=== PATIENT | female | born 1935 | race Caucasian/White ===

== ENCOUNTER 2017-05-21 21:27 | Observation (INO) | payer OTHER, BC ==
[2017-05-21] MEDS ORDERED: HYDROCODONE/APAP 5/325 TAB PO ONE (21:52)
--- NOTE | 2017-05-21 23:49 | EDPHY ---
H & P Stated Complaint: r knee pain and swelling Time Seen by Provider: 05/21/17 23:57 HPI/ROS: HPI: This is an 81-year-old female who presents with Chief Complaint: Right knee pain Location: Right anterior and posterior knee Quality: Aching pain Duration: 1 week Signs and Symptoms: no radiation, no numbness, no weakness, no tingling, no incontinence, + decreased flexion, no injury, + swelling, no erythema Timing: Gradual onset Severity: Moderate Context: Patient has a history of right total knee replacement greater than 10 years ago by an orthopedic surgeon in [place]. Patient reports that she has been in physical therapy the last 2 weeks. She has noted increased pain in her right knee. Has not fallen on it. Denies feeling any popping or locking symptoms. Modifying Factors: Tylenol without relief Comment: ROS: Constitutional: No fever, no chills, no weight loss Eyes: No blurred vision Respiratory: No shortness of breath, no cough Cardiovascular: No chest pain Gastrointestinal: No nausea, no vomiting no diarrhea Genitourinary: No dysuria Extremities: No myalgias Neurologic: No weakness, no numbness Skin: No rashes Hematologic: No bruising, no bleeding Source: Patient, Family Exam Limitations: No limitations - Personal History Current Tetanus/Diphtheria Vaccine: Unsure Current Tetanus Diphtheria and Acellular Pertussis (TDAP): Unsure Tetanus Vaccine Date: Unknown - Medical/Surgical History Hx Asthma: No Hx Chronic Respiratory Disease: No Hx Diabetes: No Hx Cardiac Disease: Yes Hx Renal Disease: No Hx Cirrhosis: No Hx Alcoholism: No Hx HIV/AIDS: No Hx Splenectomy or Spleen Trauma: No Other PMH: hypothyroid, bilat hip, knee surgery. right shoulder. heart stents, htn, seizure. - Social History Smoking Status: Never smoked Additional Social History: . - Physical Exam Exam: CONSTITUTIONAL: Pleasant elderly obese white female, awake and alert, no obvious distress HEENT: Atraumatic and normocephalic, PERRL, EOMI. Tympanic membranes clear. . Oropharynx clear, no exudate and moist pink mucosa. Airway patent. No lymphadenopathy. No meningismus. Cardiovascular: Normal S1/S2, regular rate, regular rhythm, without murmur rub or gallop. PULMONARY/CHEST: Symmetrical and nontender. Clear to auscultation bilaterally Good air movement. No accessory muscle usage. ABDOMEN: Soft, nondistended, nontender, no rebound, no guarding, no peritoneal signs, no masses or organomegaly. No CVAT. EXTREMITIES: 2/2 pulses, right knee moderate effusion; medial and lateral joint line tenderness; some laxity with valgus and varus stress; full extension to 180; flexion only to 40 limited secondary to pain. Fullness in the popliteal fossa. No calf tenderness. Well-healed remote anterior vertical incision. no deformities, no clubbing, no cyanosis or pedal edema. NEUROLOGICAL: no focal neuro deficits. GCS 15. SKIN: Warm and dry, no erythema. no rash. Good capillary refill. Constitutional: Initial Vital Signs Temperature (C) 36.5 C 05/21/17 21:42 Heart Rate 105 H 05/21/17 21:42 Respiratory Rate 18 05/21/17 21:42 Blood Pressure 162/96 H 05/21/17 21:42 O2 Sat (%) 93 05/21/17 21:42 O2 Delivery Mode Room Air Allergies/Adverse Reactions: sulfamethoxazole [From Bactrim] Allergy (Intermediate, Verified 05/23/12 21:02) UPSET STOMACH trimethoprim [From Bactrim] Allergy (Intermediate, Verified 05/23/12 21:02) UPSET STOMACH celecoxib [From Celebrex] Allergy (Verified 10/28/13 22:22) INCREASED BP Home Medications: Medication Instructions Recorded Acetaminophen [Tylenol 325mg (*)] 650 mg PO BID PRN 12/03/11 Atorvastatin Calcium [Lipitor 20 20 mg PO DAILY 03/20/12 mg (*)] Levothyroxine [Synthroid 100 mcg 125 mcg PO DAILY 03/20/12 (*)] Metoprolol Succinate Xr [Toprol Xl 150 mg PO DAILY 03/20/12 100 mg (*)] levETIRAcetam [Keppra 500 mg (RX)] 500 mg PO BID #60 tab 03/21/12 Aspirin EC [Aspirin EC 325 mg 325 mg PO DAILY 01/03/13 (OTC)] Losartan Potassium 09/08/14 Hydrocodone/APAP 5/325 [Secor 1 - 2 tab PO Q4H PRN #10 tab 05/21/17 5/325 (*)] Norvasc 05/21/17 Medical Decision Making - Diagnostics Imaging Results: Imaging Impressions Extremity Venous Study 05/21/17 21:52 Impression: 1. No deep venous thrombosis in the right lower extremity. 2. 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 Findings discussed with Ele Jacob PAC at 23:37 hour, 05/21/2017. Knee X-Ray 05/21/17 21:52 Impression: 1. Moderate to large effusion suprapatellar bursa region. 2. No evidence of fracture about the right knee replacement. ED Course/Re-evaluation: Right lower extremity ultrasound, right knee x-ray, oral medication ordered Ultrasound shows no evidence of DVT, + Coleman cyst. Right knee x-ray my read via PACS shows effusion; hardware intact. Will defer to Orthopedics for aspiration of knee infusion in a patient with knee replacement. Moderate pain in relief with Secor Atul wrap; uses walker at home to aid in ambulation No signs of neurovascular compromise/tenting of skin/compartment syndrome/ extremities and joints examined above and below area of concern and are neurovascularly intact. Differential Diagnosis: Differential diagnosis includes but is not limited to Coleman cyst, hardware malfunction, extensor mechanism failure, septic arthritis, DVT, cellulitis, effusion, osteoarthritis. 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 Prescriptions: Hydrocodone/APAP 5/325 [Secor 5/325 (*)] 1 - 2 tab PO Q4H PRN #10 tab PRN Reason: Pain, Moderate
[2017-05-22 01:29] LABS: % IMMATURE GRANULYOCYTES 0.7 % (0.0-1.1); ADD DIFF? NO; ADD MORPH? NO; ADD SCAN? NO; ATYPICAL LYMPHOCYTE FLAG 10 (0-99); FRAGMENT RBC FLAG 0 (0-99); HEMATOCRIT 40.9 % (38.0-47.0); HEMOGLOBIN 13.6 g/dL (12.6-16.3); LEFT SHIFT FLG 0 (0-99); LIPEMIA HEMOLYSIS FLAG 80 (0-99); MEAN CELL HEMOGLOBIN CONCENTR. 33.3 g/dL (32.4-36.7); MEAN CELL VOLUME 90.3 fL (81.5-99.8); MEAN PLATELET VOLUME 8.6 fL (8.7-11.7); PLATELET CLUMPS FLAG 10 (0-99); PLATELET COUNT 292 10^3/uL (150-400); RED BLOOD CELL COUNT 4.53 10^6/uL (4.18-5.33); RED CELL DISTRIBUTION WIDTH 13.2 % (11.5-15.2)
[2017-05-22 01:48] LABS: SEDIMENTATION RATE 8 MM/HR (0-30)
[2017-05-22 02:03] LABS: CHLORIDE 92 mEq/L (97-110); POTASSIUM 4.1 mEq/L (3.5-5.2); SODIUM 126 mEq/L (134-144)
[2017-05-22 02:04] LABS: C-REACTIVE PROTEIN < 5.0 mg/L (<10.0); CALCIUM 9.2 mg/dL (8.5-10.4); CREATININE 0.7 mg/dL (0.6-1.0); GLOMERULAR FILTRATION RATE > 60; GLUCOSE 133 mg/dL (70-100)
[2017-05-22 02:27] LABS: ANION GAP 15 mEq/L (8-16); CARBON DIOXIDE 19 mEq/l (22-31)
[2017-05-22] MEDS ORDERED: ACETAMINOPHEN 325 MG TAB PO PRN ×2 (02:37→10:46)
[2017-05-22] MEDS ORDERED: oxyCODONE IR 5 MG TAB PO PRN (02:37)
[2017-05-22] MEDS ORDERED: ONDANSETRON 4 MG/2 ML VIAL IVP PRN (02:37)
[2017-05-22] MEDS ORDERED: ONDANSETRON DISINTEGRATING 4 MG TAB PO PRN (02:37)
[2017-05-22] MEDS ORDERED: KETOROLAC 15 MG/1 ML SDV IVP ONE ×2 (02:40→05:30)
--- NOTE | 2017-05-22 03:16 | PDGENHP ---
History and Physical - Chief Complaint Knee pain - History of Present Illness 81 yo F w/ hx of CAD, HTN, and OA s/p multiple joint replacements presents with R knee pain. Patient has hx of coleman cyst of R knee. She was undertaking usual activities today when she noted fairly acute onset of R knee pain and posterior knee(popliteal) swelling. She denies fevers, redness, or severe pain with range of motion. She had a similar episode to this a few months ago that resolved with supportive care ([facility].I.C.E) only. She was set to go home from the ED but could not ambulate with her walker due to pain so was admitted for observation. History Information - Allergies/Home Medication List Allergies/Adverse Reactions: sulfamethoxazole [From Bactrim] Allergy (Intermediate, Verified 05/23/12 21:02) UPSET STOMACH trimethoprim [From Bactrim] Allergy (Intermediate, Verified 05/23/12 21:02) UPSET STOMACH celecoxib [From Celebrex] Allergy (Verified 10/28/13 22:22) INCREASED BP Home Medications: Acetaminophen [Tylenol 325mg (*)] 650 mg PO BID PRN 12/03/11 [Last Taken 08:00] Atorvastatin Calcium [Lipitor 20 mg (*)] 20 mg PO DAILY 03/20/12 [Last Taken 08:00] Levothyroxine [Synthroid 100 mcg (*)] 125 mcg PO DAILY 03/20/12 [Last Taken 08:00] Metoprolol Succinate Xr [Toprol Xl 100 mg (*)] 150 mg PO DAILY 03/20/12 [Last Taken 01/03/13 08:00] Aspirin EC [Aspirin EC 325 mg (OTC)] 325 mg PO DAILY 01/03/13 [Last Taken 08:00] Losartan Potassium 09/08/14 [Last Taken Unknown] Norvasc 05/21/17 [Last Taken Unknown] I have personally reviewed and updated: family history, medical history - Past Medical History coronary artery disease - Surgical History Additional surgical history: B/l TKAs - Family History Positive for: CAD - Social History Smoking Status: Never smoked Alcohol Use: None Drug Use: None Review of Systems ROS: 10pt was reviewed & negative except for what was stated in HPI & below Physical Exam Temp Pulse Resp BP Pulse Ox 36.5 C 79 18 163/101 H 91 L 05/22/17 02:33 05/22/17 02:33 05/22/17 02:33 05/22/17 02:33 05/22/17 02:33 Constitutional: no apparent distress, appears nourished Eyes: PERRL, EOMI Ears, Nose, Mouth, Throat: moist mucous membranes, no oral mucosal ulcers Cardiovascular: regular rate and rhythym, no murmur, rub, or gallop Respiratory: no respiratory distress, clear to auscultation Gastrointestinal: normoactive bowel sounds, soft, non-tender abdomen Skin: warm, no rashes or abrasions Musculoskeletal: joint effusion (Mild R knee effusion, no warmth or redness) Neurologic: AAOx3, CN II-XII Intact Psychiatric: interacting appropriately, not anxious Lab Data & Imaging Review 05/22/17 01:20 05/22/17 01:20 WBC 13.95 10^3/uL (3.80-9.50) H 05/22/17 01:20 RBC 4.53 10^6/uL (4.18-5.33) 05/22/17 01:20 Hgb 13.6 g/dL (12.6-16.3) 05/22/17 01:20 Hct 40.9 % (38.0-47.0) 05/22/17 01:20 MCV 90.3 fL (81.5-99.8) 05/22/17 01:20 MCH 30.0 pg (27.9-34.1) 05/22/17 01:20 MCHC 33.3 g/dL (32.4-36.7) 05/22/17 01:20 RDW 13.2 % (11.5-15.2) 05/22/17 01:20 Plt Count 292 10^3/uL (150-400) 05/22/17 01:20 MPV 8.6 fL (8.7-11.7) L 05/22/17 01:20 Neut % (Auto) 74.3 % (39.3-74.2) H 05/22/17 01:20 Lymph % (Auto) 18.3 % (15.0-45.0) 05/22/17 01:20 Williamson % (Auto) 5.2 % (4.5-13.0) 05/22/17 01:20 Eos % (Auto) 0.9 % (0.6-7.6) 05/22/17 01:20 Baso % (Auto) 0.6 % (0.3-1.7) 05/22/17 01:20 Nucleat RBC Rel Count 0.0 % (0.0-0.2) 05/22/17 01:20 Absolute Neuts (auto) 10.36 10^3/uL (1.70-6.50) H 05/22/17 01:20 Absolute Lymphs (auto) 2.55 10^3/uL (1.00-3.00) 05/22/17 01:20 Absolute Monos (auto) 0.73 10^3/uL (0.30-0.80) 05/22/17 01:20 Absolute Eos (auto) 0.12 10^3/uL (0.03-0.40) 05/22/17 01:20 Absolute Basos (auto) 0.09 10^3/uL (0.02-0.10) 05/22/17 01:20 Absolute Nucleated RBC 0.00 10^3/uL (0-0.01) 05/22/17 01:20 Immature Gran % 0.7 % (0.0-1.1) 05/22/17 01:20 Immature Gran # 0.10 10^3/uL (0.00-0.10) 05/22/17 01:20 ESR 8 MM/HR (0-30) 05/22/17 01:20 Sodium 126 mEq/L (134-144) L 05/22/17 01:20 Potassium 4.1 mEq/L (3.5-5.2) 05/22/17 01:20 Chloride 92 mEq/L (97-110) L 05/22/17 01:20 Carbon Dioxide 19 mEq/l (22-31) L 05/22/17 01:20 Anion Gap 15 mEq/L (8-16) 05/22/17 01:20 BUN 22 mg/dL (7-23) 05/22/17 01:20 Creatinine 0.7 mg/dL (0.6-1.0) 05/22/17 01:20 Estimated GFR > 60 05/22/17 01:20 Glucose 133 mg/dL (70-100) H 05/22/17 01:20 Calcium 9.2 mg/dL (8.5-10.4) 05/22/17 01:20 C-Reactive Protein < 5.0 mg/L (<10.0) 05/22/17 01:20 Imaging Review: Knee XR with effusion, no osseous abnormality. Ultrasound confirms Coleman's Cyst w/ no DVT. Assessment & Plan Assessment: 81 yo F w/ CAD, HTN, and OA presents with R knee pain most likely 2/2 known Coleman's Cyst. Plan: 1. R knee pain - Suspect related to Coleman's cyst with possible rupture causing acute symptoms. No redness, warmth, fever, or significant pain with ROM to suggest septic arthritis. XR with effusion only, U/S confirms Coleman's cyst and rules out DVT. She had similar episode to this in the past that resolved with supportive care only. - Will give ketorolac 15 mg IV x1 - Supportive care - Monitor for emergence of infectious symptoms, none currently 2. Leukocytosis - Mild, suspect related to inflammation from above. No other SIRS criteria. Continue to monitor. 3. CAD - Chest pain free, on ASA, BB, statin as outpatient. 4. HTN - Well controlled on outpatient regimen Diet - Regular Code - Full Ppx - LMWH Dispo - Admit to observation, suspect will need <2 MN needed for symptom control
[2017-05-22 04:54] LABS: % IMMATURE GRANULYOCYTES 0.6 % (0.0-1.1); ABSOLUTE IMMATURE GRANULOCYTES 0.08 10^3/uL (0.00-0.10); ADD DIFF? NO; ADD MORPH? NO; ADD SCAN? NO; ATYPICAL LYMPHOCYTE FLAG 0 (0-99); FRAGMENT RBC FLAG 0 (0-99); HEMATOCRIT 36.1 % (38.0-47.0); HEMOGLOBIN 12.5 g/dL (12.6-16.3); LEFT SHIFT FLG 0 (0-99); LIPEMIA HEMOLYSIS FLAG 90 (0-99); MEAN CELL HEMOGLOBIN CONCENTR. 34.6 g/dL (32.4-36.7); MEAN CELL VOLUME 86.8 fL (81.5-99.8); MEAN PLATELET VOLUME 9.1 fL (8.7-11.7); PLATELET CLUMPS FLAG 0 (0-99); PLATELET COUNT 253 10^3/uL (150-400); RED BLOOD CELL COUNT 4.16 10^6/uL (4.18-5.33); RED CELL DISTRIBUTION WIDTH 13.2 % (11.5-15.2)
[2017-05-22 05:17] LABS: ANION GAP 11 mEq/L (8-16); CALCIUM 9.1 mg/dL (8.5-10.4); CARBON DIOXIDE 18 mEq/l (22-31); CHLORIDE 96 mEq/L (97-110); CREATININE 0.6 mg/dL (0.6-1.0); GLOMERULAR FILTRATION RATE > 60; GLUCOSE 97 mg/dL (70-100); POTASSIUM 4.3 mEq/L (3.5-5.2); SODIUM 125 mEq/L (134-144)
[2017-05-22 07:59] VITALS: RESP 16; TEMP 97.5
[2017-05-22] MEDS ORDERED: ENOXAPARIN 30 MG/0.3 ML SYR SC SCH (09:00)
[2017-05-22] MEDS: DICLOFENAC SODIUM 1% 100 GM GEL TP SCH ×3 (10:01→16:10)
--- NOTE | 2017-05-22 10:52 | PDDCSUM ---
Discharge Summary Discharge Summary: DISCHARGE SUMMARY FOLLOW-UP ITEMS: Schedule appointment with Dr. Wilmar Soto. DATE OF ADMISSION: 05/22/2017 DATE OF DISCHARGE: 05/22/17 DISCHARGE DIAGNOSES: 1. Acute knee pain 2. Osteoarthritis 3. Coleman cyst 4. Chronic hypertension 5. Chronic hyponatremia CONSULTATIONS: None PROCEDURES / IMAGING: Ultrasound of the leg demonstrating no evidence of deep venous thrombosis, coleman cyst, x-ray demonstrating suprapatellar effusion with no fracture CHIEF COMPLAINT: Acute leg pain and inability to ambulate SUBJECTIVE: Patient is working well with physical therapy, ambulating with less pain PHYSICAL EXAM ON DISCHARGE: Systolic blood pressure is 140-160, heart rate 80, afebrile overnight, satting well on room air, alert awake oriented x3, there is minimal tenderness posterior to the knee on the right side, with small palpable Coleman cyst, joint effusion without any anterior tenderness, full range of motion right ankle without any effusion or pain, full range of motion right hip with flexion, limited flexion in right knee secondary to chronic osteoarthritic changes LABS ON DISCHARGE: White blood cell count 13,700, hemoglobin 12.5, serum sodium 125, creatinine 0.6 HOSPITAL COURSE BY PROBLEM: 1. Acute knee pain. Most likely secondary to ruptured Coleman cyst resulting in right knee effusion and underlying osteoarthritis. She requires observation overnight she was unsafe to ambulate out of the emergency department on her presentation. Her leukocytosis was most likely secondary to pain response. Physical exam is not demonstrative of septic joint in patient's pain has responded to supportive care. The patient engage successfully with physical and occupational therapy, and was safe for discharge home with home PT and RN services. Dr. Soto was notified of patient's discomfort and patient was advised to follow up with him closely as an outpatient. 2. Chronic hypertension. Patient was continued on all of her home antihypertensives, the diclofenac topical should not significantly elevated her blood pressure but she should have outpatient blood pressure monitoring through PCP office. DISCHARGE MEDICATIONS: Please see official discharge medication reconciliation sheet in chart , diclofenac topical as needed, continue all other home medications, oxycodone immediate release as needed. DISCHARGE INSTRUCTIONS: Please have outpatient labs recheck through primary care office.
[2017-05-22] MEDS ORDERED: LOSARTAN POTASSIUM 50 MG TAB PO SCH (11:00)
[2017-05-22] MEDS ORDERED: METOPROLOL SUCCINATE XR 100 MG TAB PO SCH (11:00)
[2017-05-22] MEDS ORDERED: ASPIRIN EC 325 MG TAB PO SCH (11:00)
[2017-05-22] MEDS ORDERED: NON-FORMULARY NEW DRUG (Losartan Potassium [Cozaar] 100 MG) PO SCH (11:00)
[2017-05-22] MEDS ORDERED: ATORVASTATIN CALCIUM 20 MG TAB PO SCH (11:00)
[2017-05-22] MEDS ORDERED: LEVOTHYROXINE 125 MCG TAB PO SCH (11:00)
[2017-05-22] MEDS ORDERED: levETIRAcetam 500 MG TAB PO SCH (11:00)
[2017-05-22 11:42] VITALS: BP 110/75; PULSE 93; O2SAT 92
[2017-05-22] MEDS ORDERED: amLODIPine BESYLATE 5 MG TAB PO SCH (21:00)
[2017-05-23] MEDS ORDERED: ENOXAPARIN 40 MG/0.4 ML SYR SC SCH (09:00)
--- NOTE | 2017-05-23 09:18 | ASMTCMCOM ---
CM Note CM Note Notes: PT/OT clear pt for home. Pt medically stable for d/c, no CM d/c needs identified. Date Signed: 05/23/2017 09:18 AM Electronically Signed By:Lizzy Caraballo
--- NOTE | 2017-05-23 09:18 | ASDISCHSUM ---
Discharge Information Plan Status:Home with No Needs Medically Cleared to Leave: Discharge Date: D/C Disposition:Home, Routine, Self-Care ADT D/C Disposition: Projected Discharge Date: Transportation at D/C: Discharge Delay Reason: Follow-Up Date: Discharge Slot: Final Diagnosis: Placement Information Patient Contact Information Contact Name:AFSHAN Relationship: Address:[address] [place], [place] [id number] [address] City:[place] Alternate Phone: State/Zip Code:[place] [address] Email: Financial Information Financial Class: Primary Plan Desc:MEDICARE OUTPATIENT Primary Plan Number:[id number] Secondary Plan Desc: OUT OF STATE INDEMNITY Secondary Plan Number:[id number] Assessment Information Intervention Information Intervention Type:*DINH-Shell Date of Service:05/22/2017 01:05 PM Patient Type:Observation Staff Member:Genevieve Dior Hours: Discipline: Severity: Comment:
== END 2017-05-22 17:07 | disposition home or self-care (01) ==
LOC: EDUNIT# → F3N 05-22 02:26
PROVIDERS: ADMIT Student in an Organized Health Care Education/Training Program; ATTEND Student in an Organized Health Care Education/Training Program
DX: M25.561 Pain in right knee (principal); M71.21 Synovial cyst of popliteal space [Baker], right knee; M17.11 Unilateral primary osteoarthritis, right knee; I10 Essential (primary) hypertension; E87.1 Hypo-osmolality and hyponatremia; I25.10 Atherosclerotic heart disease of native coronary artery without angina pectoris; Z96.651 Presence of right artificial knee joint
CPT/HCPCS: 73562; 93971; 97161; 97165; G0378; G8978; G8979; G8980; G8987; G8989; J1885; J1650